=== PATIENT | female | born 1975 | race Caucasian/White ===

== ENCOUNTER 2017-12-01 09:48 | Day surgery (SDC) | payer OTHER ==
[2017-12-01 10:24] VITALS: BMI 31.8
[2017-12-01 10:44] VITALS: O2SAT 100
[2017-12-01] MEDS ORDERED: Propofol 10 mg/ml Inj (20 ML) ONE (11:53)
[2017-12-01] MEDS ORDERED: Belladonna-Phenobarbital PO STA (11:55)
--- NOTE | 2017-12-01 11:55 | CP.SDSHP ---
Same Day Surgery H & P - History Proposed Procedure: EGD Pre-Op Diagnosis: SEE NOTES - Previous Medical/Surgical History Misc: Other Pain: 4.Moderate Pain - Allergies Allergies: Allergies No Known Allergies Allergy (Verified 07/02/16 11:01) - Physical Exam General Appearance: N Vital Signs: Vital Signs 12/01/17 10:32 Temperature 97.7 F Pulse Rate 78 Respiratory 20 Rate Blood Pressure 135/74 O2 Sat by Pulse 100 Oximetry Mental Status: Alert & Oriented x3 Neuro: WNL Heart: WNL Lungs: WNL GI: Other - {Optional Preform as Required} Breast: WNL Abdomen: Other Rectal: Other Integument: WNL : WNL Ortho: WNL ENT: WNL - Impression Pt. Evaluated Today:Candidate for Anesthesia & Procedure: Yes - Date & Time Time: 11:54 Short Stay Discharge - Short Stay Discharge Admitting Diagnosis/Reason for Visit: FUNCTIONAL DYSPEPSIA, UNSPECIFIED ABDOMINAL PAIN Disposition: HOME/ ROUTINE
[2017-12-01 13:31] VITALS: BP 128/69; PULSE 81; RESP 20; TEMP 97.2
== END 2017-12-01 13:20 | disposition home or self-care (01) ==
LOC: C.ENDO 09:48
PROVIDERS: ATTEND Specialist
DX: R10.13 Epigastric pain (principal); K44.9 Diaphragmatic hernia without obstruction or gangrene; K29.50 Unspecified chronic gastritis without bleeding
CPT/HCPCS: 43239; 84703; 88305; J2001; J2704